=== PATIENT | male | born 1975 | race African-American/Black ===

== ENCOUNTER 2019-02-18 20:24 | Emergency (ER) | payer OTHER ==
[~2019-02-18] VITALS: Ht 167.6 cm; Wt 65.4 kg
[2019-02-18 22:00] VITALS: BP 136/78
[2019-02-18] MEDS ORDERED: FLONASE AL50 MCG/ACT (22:02)
[2019-02-18] MEDS ORDERED: FIORICET PO (22:02)
== END 2019-02-18 22:15 | disposition home or self-care (01) | DRG 153 ==
LOC: ED 20:24
DX: J31.0 Chronic rhinitis (principal)